=== PATIENT | male | born 1985 | race Asian ===

== ENCOUNTER → 2017-12-31 | Outpatient (CLI) | payer SELFPAY ==
--- NOTE | 2017-12-31 15:38 | Diagnostic Imaging Report ---
Indication: Neck pain Technique: MRI examination of the cervical spine was performed in a 1.5 Jerilyn magnet. Sequences obtained include sagittal and axial T1 and T2 fast spin echo, and sagittal STIR. Comparison: none Findings: There is no bone marrow edema appreciated. No acute fracture is seen. The spinal ligaments are normal. No paravertebral or paraspinous soft tissue swelling identified. There is some motion artifact limiting evaluation especially on the sagittal T1 sequence. The spinal cord appears normal in signal and is homogeneous. There is no evidence of cord compression or significant neural impingement identified. Mild degenerative disc disease characterized by desiccation and mild narrowing noted at C4-5, C5-6 and C6-7. Minimal disc bulges are noted at these levels. Mild uncovertebral hypertrophy noted at these levels without definite narrowing of the neural foramen. Area of the foramen magnum is unremarkable. There is no Chiari malformation. IMPRESSION: No evidence of acute injury. Degenerative changes at C4-5, C5-6 and C6-7 as discussed above. Motion artifact
--- NOTE | 2017-12-31 16:01 | Diagnostic Imaging Report ---
Indication: Shoulder pain Technique: MRI of the right shoulder obtained in a 1.5 Jerilyn magnet. Pulse sequences obtained include axial and coronal proton fast spin-echo with fat saturation, sagittal T1 fast spin-echo, sagittal and coronal T2 fast spin-echo with fat saturation. Findings: There is no malalignment, bone marrow edema or evidence of an acute fracture. There is slight irregularity suspected within the inferior aspect of the glenoid labrum. Adjacent there is some chondral edema mild in degree. Lastly there is a small cystic structure possibly a para labral cyst measuring about 3 mm projected just inferior and slightly medial to the glenoid labrum. Labral pathology may be present and is not adequately evaluated on this examination. MR arthrography may be beneficial for further evaluation. The rotator cuff is intact. The lung of the biceps tendon is normal. Biceps anchor is unremarkable. There is no Hill-Sachs deformity definitely identified. No joint effusion identified. IMPRESSION: Probable small para labral cyst associated with the inferior glenoid labrum which may be slightly irregular and thickened. Suggest clinical correlation. Evaluation with MR arthrography may be of benefit as warranted clinically. Negative exam otherwise. Intact rotator cuff. No evidence of acute injury
== END | disposition home or self-care (01) ==
LOC: EEVIPCON 12-30 09:00 → MRI 13:25
DX: M25.511 Pain in right shoulder (principal); M50.30 Other cervical disc degeneration, unspecified cervical region
CPT/HCPCS: 72141

== ENCOUNTER 2018-01-07 07:50 | Day surgery (SDC) | payer SELFPAY ==
[~2018-01-07] VITALS: Ht 180.3 cm; Wt 100.0 kg
[2018-01-07] MEDS ORDERED: Depo-Medrol 80mg Vial IARTIC ONE (08:00)
[2018-01-07] MEDS ORDERED: Bupivacaine 0.5% Inj 30 ml vial INJ ONE (08:00)
[2018-01-07] MEDS ORDERED: Isovue-M 300 15ml INJ ONE (08:00)
[2018-01-07] MEDS ORDERED: Depo-Medrol 40mg Inj IARTIC ONE (08:00)
[2018-01-07] MEDS ORDERED: LORazepam Inj 2mg/ml 1ml IV ONE (08:00)
[2018-01-07 08:31] VITALS: BP 129/84
[2018-01-07] MEDS ORDERED: NKM (08:34)
[2018-01-07 08:35] LABS: BASOPHILS % (AUTO) 1.3 % (0.0-2.0); EOSINOPHILS % (AUTO) 1.9 % (0.0-3.0); HEMATOCRIT 45.7 % (42.0-52.0); HEMOGLOBIN 15.8 G/DL (14.2-18.0); MEAN CORPUSCULAR VOLUME 82 FL (80-99); MONOCYTES % (AUTO) 9.4 % (1.0-10.0); NEUTROPHILS % (AUTO) 53.4 % (45.0-75.0); PLATELET COUNT 217 K/UL (150-450); RED BLOOD COUNT 5.61 M/UL (4.70-6.10); RED CELL DISTRIBUTION WIDTH 13.4 % (11.6-14.8); WHITE BLOOD COUNT 5.6 K/UL (4.8-10.8)
[2018-01-07 10:45] VITALS: BP 114/72
--- NOTE | 2018-01-07 10:53 | Discharge Instructions ---
Discharge Instructions Discharge Instructions Follow up with: dr wheeler Diet: regular Resume Normal Activity?: Yes - up ad sergei Activity: up ad sergei For Surgical Patients Clean and Dry: surgical site Dressing Care: may change May shower: Yes Contact your physician for: bleeding, pain, tenderness, redness, swelling, yellowish discharge in the op. site For Congestive Heart Failure Reminder Report to your physician any weight gain of 5 pounds or more in one week. ABHINAV WHEELER Jan 07, 2018 10:53
--- NOTE | 2018-01-07 14:42 | Diagnostic Imaging Report ---
Indication: Pain, intraoperative images Technique: Intraoperative imaging Comparison: none Findings: Intraprocedural images document needle placement adjacent to the cervical spine, probably to the right of the midline at the C3 level, with injection of a small amount of contrast Impression: Intraoperative imaging, as described
== END 2018-01-07 11:25 | disposition home or self-care (01) ==
LOC: EEVIPCON 07:50 → SUR 07:50 → RAD 07:50 → SUR 11:25
DX: M50.10 Cervical disc disorder with radiculopathy, unspecified cervical region (principal); K21.9 Gastro-esophageal reflux disease without esophagitis
CPT/HCPCS: 36415; 62321; 85025; 85610; 85730; J1030; J1040; J3490; Q9967

== ENCOUNTER 2018-01-14 12:26 | Outpatient (CLI) | payer SELFPAY ==
[~2018-01-14] VITALS: Ht 182.9 cm; Wt 99.8 kg
[2018-01-14 10:25] VITALS: BP 116/74
[2018-01-14 10:56] LABS: BASOPHILS % (AUTO) 0.9 % (0.0-2.0); HEMATOCRIT 45.3 % (42.0-52.0); HEMOGLOBIN 15.9 G/DL (14.2-18.0); LYMPHOCYTES % (AUTO) 39.1 % (20.0-45.0); MEAN CORPUSCULAR VOLUME 81 FL (80-99); MONOCYTES % (AUTO) 8.4 % (1.0-10.0); NEUTROPHILS % (AUTO) 50.6 % (45.0-75.0); PLATELET COUNT 226 K/UL (150-450); WHITE BLOOD COUNT 6.4 K/UL (4.8-10.8)
[2018-01-14 11:55] VITALS: BP 141/71
[~2018-01-14 12:26] MED LIST: Bupivacaine 0.5% Inj 30 ml vial INJ SCH; Depo-Medrol 40mg Inj IARTIC SCH; Depo-Medrol 80mg Vial IARTIC SCH; Isovue-M 300 15ml INJ SCH; LORazepam Inj 2mg/ml 1ml IV SCH; NKM
== END 2018-01-14 14:26 | disposition home or self-care (01) ==
LOC: RAD 12:26
DX: M50.10 Cervical disc disorder with radiculopathy, unspecified cervical region (principal)
CPT/HCPCS: 36415; 85025; 85610; 85730; J1040; J3490